=== PATIENT | female | born 1980 | race Caucasian/White ===

== ENCOUNTER 2025-06-11 08:39 | Emergency (ER) | payer BC, SELFPAY ==
[2025-06-11 08:41] VITALS: BP 110/74
--- NOTE | 2025-06-11 09:01 | EDRN ---
Mychal Topete PA in room w/pt and spouse at this time.
[2025-06-11 09:03] VITALS: BMI 23.9
[2025-06-11] MEDS: TYLENOL 650 MG PO (09:13)
--- NOTE | 2025-06-11 09:13 | ED.GENMED ---
History of Present Illness
<Jennie Topete PA-C - Last Filed: 06/12/25 11:13>
General
Chief Complaint: Skin Surface Trauma
Source: patient
Exam Limitations: none
Time Seen by Provider: 06/11/25 08:57
Nursing documentation reviewed up to this point in time: agreed with
History of Present Illness
History of Present Illness:
Patient is a 44-year-old healthy female who presents to the emergency department with head injury. 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
upward and struck her on her nose. She states she 'blacked out' although is unsure if she completely lost consciousness. She reports an immediate nosebleed which fortunately did stop on its own.
She was able to get back into the barn where she was assisted by others and at that time felt extremely lightheaded although does not believe she lost consciousness.
At this time�patient describes significant headache, worse on the left side of her face as well as pain in her nose. She reports nausea although has not had any episodes of vomiting. She denies any double vision.
She denies any numbness/tingling or weakness in extremities any other injury sustained.
She is not on any blood thinners.
Past History
<Jennie Topete PA-C - Last Filed: 06/12/25 11:13>
Past History
ED Past Medical History: Other (Anxiety, anemia, migraines)
ED Past Surgical History: Gynecological
Social History
Tobacco: Non-smoker
Alcohol: Occasional
Drug: None
Personal:
Living: with family
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
Family History
Family History: Other (n/c)
Review of Systems
<Jennie Topete PA-C - Last Filed: 06/12/25 11:13>
Review of Systems
Allergies reviewed?: Yes
All Other Systems: ROS reviewed and negative except as documented in HPI and ROS
Phy Exam
<Jennie Topete PA-C - Last Filed: 06/12/25 11:13>
Physical Exam
Physical Exam:
GENERAL: No acute distress
HEENT: Significant swelling/ bruising to nasal bridge without obvious deformity, dried blood around b/l nares without active bleeding or septal hematoma, approx 1.5 cm superficial vertical laceration on nasal bridge - edges well approximated,
extraocular muscles intact, no signs of entrapment, dentition intact, no tenderness at TMJ or trismus, no other obvious trauma
NECK: no midline tenderness, normal range of motion, no other obvious trauma
BACK: no midline tenderness, no other obvious trauma
CHEST: no tenderness, no flail segment, no subcutaneous emphysema, no other obvious trauma
LUNGS: clear to auscultation bilaterally
CARDIOVASCULAR: regular rate and rhythm
ABDOMEN: soft, non-tender,
PELVIS: stable, no obvious injury
EXTREMITIES: moving all extremities, distal pulses intact, no other obvious trauma
NEUROLOGIC: awake, alert x 3, no focal deficits
Course
<Jennie Topete PA-C - Last Filed: 06/12/25 11:13>
Orders/Labs/Results
Orders:
Orders
06/11/25 09:07
Facial Bones wo Contrast CT [CT Facial Bones W/o Iv Contras] Urgent
Comment:
Reason For Exam: head strike
Acetaminophen [Tylenol] 650 mg PO NOW STA
Tetanus/Diphth/Acelpertussis [Adacel] 0.5 ml IM .ONCE ONE
06/11/25 09:08
CT Head W/o Iv Contrast Urgent
Comment:
Reason For Exam: Headstrike
06/11/25 09:41
Test Result ONCE
06/11/25 10:01
Urine,Hcg qualitative screen [HCG, Urine Qualitative Screen] Urgent
Date Specimen was Collected: 06/11/25
Time Specimen was Collected: 09:59
06/11/25 10:54
Tetanus and Diphtheria Tox/Pf [Tenivac] 0.5 ml IM .ONCE ONE
Vital Signs
Initial and Last Documented VS:
Initial Vital Signs
Temp Pulse Resp BP Pulse Ox
97.7 F 61 16 110/74 98
06/11/25 08:41 06/11/25 08:41 06/11/25 08:41 06/11/25 08:41 06/11/25 08:41
Last Documented Vital Signs
Temp Pulse Resp BP Pulse Ox
97.7 F 57 16 120/74 100
06/11/25 08:41 06/11/25 09:59 06/11/25 09:59 06/11/25 09:59 06/11/25 09:59
<Juan Haro, DO - Last Filed: 06/11/25 12:25>
Orders/Labs/Results
Orders:
Orders
06/11/25 09:07
Facial Bones wo Contrast CT [CT Facial Bones W/o Iv Contras] Urgent
Comment:
Reason For Exam: head strike
Acetaminophen [Tylenol] 650 mg PO NOW STA
Tetanus/Diphth/Acelpertussis [Adacel] 0.5 ml IM .ONCE ONE
06/11/25 09:08
CT Head W/o Iv Contrast Urgent
Comment:
Reason For Exam: Headstrike
06/11/25 09:41
Test Result ONCE
06/11/25 10:01
Urine,Hcg qualitative screen [HCG, Urine Qualitative Screen] Urgent
Date Specimen was Collected: 06/11/25
Time Specimen was Collected: 09:59
06/11/25 10:54
Tetanus and Diphtheria Tox/Pf [Tenivac] 0.5 ml IM .ONCE ONE
Vital Signs
Initial and Last Documented VS:
Initial Vital Signs
Temp Pulse Resp BP Pulse Ox
97.7 F 61 16 110/74 98
06/11/25 08:41 06/11/25 08:41 06/11/25 08:41 06/11/25 08:41 06/11/25 08:41
Last Documented Vital Signs
Temp Pulse Resp BP Pulse Ox
97.7 F 57 16 120/74 100
06/11/25 08:41 06/11/25 09:59 06/11/25 09:59 06/11/25 09:59 06/11/25 09:59
Procedures
<Jennie Topete PA-C - Last Filed: 06/12/25 11:13>
Laceration Closure
Nose:
Status of Wound: clean
Size of Wound in cm: 2
Description of Wound Edges: sharp
Preparation: cleaned with saline
Revision/Debridement: routine- no revision
Wound exploration: explored to base- no FB
Type of Closure: Dermabond-skin glue
<Jennie Topete PA-C - Last Filed: 06/12/25 11:13>
MDM/Problems Addressed
Differential Diagnosis Includes:
Not limited to: nasal fracture, nasal contusion, laceration, epistaxis, concussion, etc
MDM/Problems Addressed:
44-year-old female with facial injury after wheelbarrow struck her in the nose. Unknown LOC. She did have immediate epistaxis however this did stop without intervention prior to my assessment. Very minor laceration to bridge of nose. Vitals and
physical exam as above. Patient has significant swelling and bruising of nose without any obvious deformity. No septal hematoma. No current epistaxis.
Given mechanism�will obtain CT head and facial bones. Will irrigate minor laceration. Will plan to update tetanus shot.
Update: CT head without acute traumatic injuries. CT facial bones shows comminuted fracture of nasal bone. Laceration irrigated and is very superficial. Primary closure with sutures not indicated however did place a small amount of skin glue to
better approximate inferior aspect of laceration. Patient tolerated well.
In regards to Tdap booster�patient has family immersive vaccination reactions and would like to receive tetanus and diphtheria only. Patient received Td vaccine in emergency department.
Otherwise�feels patient stable for discharge home with ENT follow-up. Will start course of Augmentin with concern for open fracture. Patient is stable for discharge. Seen with attending physician.
Chronic conditions affecting care:
N/A
Acute Exacerbation and/or Progression of Chronic Illness:
N/A
<Jennie Topete PA-C - Last Filed: 06/12/25 11:13>
*Radiology
Radiology exam reviewed: radiology read reviewed
*Pulse Oximetry
SaO2: 98
Oxygen Mode of Delivery: Room air
Patient hypoxic: no
*EKG
Interpreted by ED Provider?: NA
*Beading Installer Interpretation
Rate: Beading Installer- N/A
*Critical Care Note
Total Time (30-74mins, 75-104mins- exclusive of procedures): Not Applicable
<Jennie Topete PA-C - Last Filed: 06/12/25 11:13>
Patient Management
Discussion with other providers: Painter And Decorator (case discussed with attending physician)
ED Attending Note
<Jennie Topete PA-C - Last Filed: 06/12/25 11:13>
-
Portions of this chart may have been created with voice recognition software.� Occasional wrong word or��sound alike� substitutions may have occurred due to the inherent limitations of voice recognition software.
<Juan Haro DO - Last Filed: 06/11/25 12:25>
ED Attending Note
Patient seen and examined by attending physician: Yes
I performed the substantive portion of visit, reviewed & personally made and approve the management plan that is documented in note by myself or TOMI.: Yes
ED Attending Note:
I have seen and evaluated the patient with a itvy-dy-hyja encounter. I have spoken to the advance practicer provider and involved in the medical history, the physical exam, medical decision making.
Evaluation and management service: agree unless noted differently below.
Results interpretation: agree unless noted differently below.
Focused HPI: 44-year-old female presenting with nasal injury.
Physical exam: Laceration noted to bridge of nose. No septal hematoma
Medical Decision Making: CT consistent with nasal bone fractures. Will start [place] with concern for open fracture discussed outpatient follow-up with ENT. We discussed likely mild concussion
Discharge Plan
Departure
Patient Disposition: Home (Routine Discharge)
Date of Disposition: 06/11/25
Time of Disposition: 12:16
Patient with high blood pressure during this ER visit?: No
Condition: Good
Discharge Problem:
Head injury, Fracture of nasal bone
Instructions: Nose Fracture ED, BLOOD PRESSURE
Prescriptions:
New
amoxicillin-pot clavulanate 875-125 mg tablet
1 tab PO BID Qty: 14 0RF
Referrals:
David Hill DO [Family Provider, Family Practice]
Solo Boston MD [Active, ENT]
Activity Restrictions/Additional Instructions:
RETURN TO THE EMERGENCY DEPARTMENT WITH ANY SEVERE HEADACHE OR NECK PAIN, INTRACTABLE VOMITING, VISUAL CHANGES OR CHANGES IN MENTAL STATUS, PERSISTENT DIZZINESS, BLEEDING FROM NOSE THAT WILL NOT STOP, OR ANY OTHER CONCERNS
- As discussed�your CT scan showed a comminuted fracture of your nasal bone. You likely also sustained a concussion today
- I would continue to apply ice to your nose. Take Tylenol and/or Motrin as needed for pain.
- Follow-up with ENT for further evaluation/management of nasal bone fracture.
Monitor your symptoms closely and return to the emergency department with any acute worsening/new symptoms or any other concerns
Interventions
Interventions:
*Risk Screen - Suicide Last Done: 06/11/25 08:45
*General Assessment Last Done: 06/11/25 08:45
*Neglect/Abuse Screening Last Done: 06/11/25 08:45
*ED- Fall Risk Assessment Last Done: 06/11/25 08:45
*ED COVID-19 Vaccine History Last Done: 06/11/25 08:45
*Nursing Disposition Last Done: 06/11/25 12:33
ED-Skin Assessment Last Done: 06/11/25 08:45
Discharge Date and Time
Discharge Date/Time: 06/11/25 12:34
Print Language: MONEGASQUE
--- NOTE | 2025-06-11 09:20 | EDRN ---
Addendum entered by Irene Larsen RN 06/11/25 09:47:
Pt was informed about TDAP and why it is administered and about each component in the vaccine as well as side effects to the vaccine.
Original Note:
Pt informed about TDAP and requested only getting the tetanus not with pertussis and diphtheria r/t her daughter having had a reaction to a vaccination in the past. pt on phone w/ mother at this time and asked if a physician would be seeing her, if
she can be seen and cut taken care of by a plastic surgeon. Pt informed a plastic surgeon consult would not be recommended r/t the ability of the staff in this ER at closing wounds and could also delay wound closure. This RN informed Mychal MCGRATH of
pt's requests and Dr. Haro of the same.
--- NOTE | 2025-06-11 09:45 | EDRN ---
This RN calling pharmacy to check if tetanus only can be ordered at this time per pt request.
--- NOTE | 2025-06-11 09:48 | EDRN ---
Pharmacist stated that it is not available tetanus alone only tetanus w/ diphtheria or TDAP.
--- NOTE | 2025-06-11 09:54 | EDRN ---
Pt atttempting urine spec last night.
[2025-06-11 09:59] VITALS: BP 120/74
[2025-06-11 10:12] LABS: HCG, Urine Qualitative Screen Negative
--- NOTE | 2025-06-11 10:53 | EDRN ---
Pt has refused the TDAP and was informed that they do not make per pharmacist a tetanus only vaccine but there is a TD tetanus diphtheria only and pt stated she will take that. I just TT'd Mychal MCGRATH about this.
--- NOTE | 2025-06-11 11:27 | EDRN ---
Mychal Topete PA was in to see pt at this time.
[2025-06-11] MEDS: TENIVAC 0.5 ML IM (11:29)
--- NOTE | 2025-06-11 12:16 | EDRN ---
Dr. Haro in room w/pt at this time.
== END 2025-06-11 12:34 | disposition home or self-care (01) ==
LOC: EMR 08:39
PROVIDERS: Physician Assistant; EMERGENCY PHYSICIAN Student in an Organized Health Care Education/Training Program; FAMILY PHYSICIAN Family Medicine
DX: S09.90XA Unspecified injury of head, initial encounter (principal); S02.2XXA Fracture of nasal bones, initial encounter for closed fracture; S01.21XA Laceration without foreign body of nose, initial encounter; Z23 Encounter for immunization; W20.8XXA Other cause of strike by thrown, projected or falling object, initial encounter; Y92.79 Other farm location as the place of occurrence of the external cause
CPT/HCPCS: 99284; 12011; 90471; 12001; 70450; 70486; 81025; 90714

== ENCOUNTER 2025-06-13 17:56 | Emergency (ER) | payer BC, SELFPAY ==
[2025-06-13 17:59] VITALS: BP 143/80
[2025-06-13 18:29] VITALS: BMI 21.4
[2025-06-13] MEDS: ANTIVERT 25 MG PO (18:43)
--- NOTE | 2025-06-13 20:16 | ED.GENMED ---
History of Present Illness
General
Chief Complaint: Dizziness
Source: patient and spouse
Exam Limitations: none
Time Seen by Provider: 06/13/25 18:27
Nursing documentation reviewed up to this point in time: agreed with
History of Present Illness
History of Present Illness:
Note:
CHIEF COMPLAINT(S)
Dizziness and vertigo, feeling of pressure on the right side of the head.
HISTORY OF PRESENT ILLNESS
The patient is a 44-year-old female who presents with dizziness described as vertigo persisting despite efforts to alleviate symptoms, such as exposure to steam and saline nasal sprays. She reports that the dizziness worsens with head movement and
does not resolve with typical remedies, such as a steam shower. Two days prior, the patient sustained a nasal fracture after being struck by a wheelbarrow at the barn. She was evaluated at that time, and a CT scan showed no intracranial bleeding,
but she did receive a tetanus shot. She reports no current headache but feels pressure on the right side of the head. The dizziness is unlike any previous episodes and feels like �vertigo that won�t go away.� She also notes intermittent nasal
congestion and occasional blood discharge, possibly indicating sinus involvement.
PAST MEDICAL AND SURIGICAL HISTORY
The patient reports a history of ENT surgeries but does not specify the type or extent. She denies any chronic medical conditions.
PHYSICAL EXAM
General: Alert, no acute distress.
Skin: Warm, dry.
Head: Normocephalic, atraumatic.
Neck: Supple, trachea midline.
Eye, Ears, Nose, Mouth, and Throat: Oral mucosa moist. Reports pressure on right side and a feeling of fullness; broken nose with no apparent deformity or new bleeding. bruising to nose, rightward nystagmus
Cardiovascular: No irregularities noted.
Respiratory: Respirations are non-labored.
Gastrointestinal: Abdomen nondistended.
Back: Normal range of motion, Normal alignment.
Musculoskeletal: Normal range of motion, normal strength.
Neurological: Alert and oriented to person, place, time, and situation, No focal neurological deficit observed.
Psychiatric: Cooperative, appropriate mood & affect.
PLAN
1. Repeat CT scan to rule out delayed intracranial bleeding.
2. Prescribed Meclizine for symptomatic relief of vertigo.
3. Recommend physical therapy to address potential vestibular dysfunction due to recent head trauma.
4. Advise against strenuous activities such as skiing until symptoms resolve.
5. Clear for travel, pending CT scan results.
DIFFERENTIAL DIAGNOSIS
The Differential Diagnosis includes, in no particular order and is not limited to:
1. Concussion with secondary vertigo
2. Benign paroxysmal positional vertigo
3. Vestibular neuritis
4. Sinusitis-induced vertigo
5. Inner ear disturbance post-trauma
6. Migrainous vertigo
7. Labyrinthitis
8. Traumatic brain injury
9. Reaction to tetanus vaccination
10. Hypertensive episode (considered unlikely from normal EKG results)
CARE-UPDATE
06/13/25 - 20:17
Patient shows improvement with Meclizine and has no acute findings on St.T. Discharge planned with instructions to follow up with physical therapy and primary care. Castillo proxia remains good.
EKG
My independent EKG interpretation is:
- Time of EKG: Not specified
- Rhythm: Normal
- Heart Rate: 59 bpm
- [place]: Normal
- [place] Interval: Not specified
- QRS Duration: Normal
- QT Interval: Not specified
- ST Segment: Normal
- T Waves: No notable inversions
- Arrhythmias: None identified
Disposition:
SUMMARY OF ENCOUNTER
The patient, a 44-year-old female, presented to the emergency department with complaints of dizziness and a sensation of vertigo that persisted despite attempts to relieve it with steam showers and saline nasal sprays. This occurred after sustaining
a nasal fracture two days prior from a wheelbarrow incident. She also expressed feeling pressure on the right side of her head but no headache. A CT scan previously showed no intracranial bleeding, and she received a tetanus shot at that time. In
the emergency department, the patient was evaluated and treated with Meclizine, which showed improvement of symptoms.
DISPOSITION
Discharge home.
ASSESSMENT
Dizziness possibly due to post-concussive vertigo.
PLAN
1. Repeat CT scan to rule out delayed intracranial bleeding.
2. Prescribe Meclizine for symptomatic relief of vertigo.
3. Recommend beginning physical therapy to address potential vestibular dysfunction due to recent head trauma.
4. Advise against engaging in strenuous activities, such as skiing, until symptoms resolve.
5. Clear for travel, pending CT scan results.
INDEPENDENT REVIEW OF LABS AND INTERPRETATION OF TESTS
My independent interpretation of the CT scan showed no intracranial bleeding.
PATIENT EDUCATION AND COUNSELING
Patient was informed about the nature of post-concussive vertigo and the expected course of symptoms. Advised on the use of Meclizine and the importance of avoiding strenuous activities.
FOLLOW-UP INSTRUCTIONS
Contact the office immediately to schedule a follow-up visit with primary care and physical therapy.
MEDICATION RECONCILIATION
1. Meclizine prescribed for symptomatic relief of vertigo.
MEDICAL DECISION MAKING
- Number and Complexity of Problems Addressed: Chronic conditions affecting care include the history of ENT surgeries. Differential diagnosis includes concussion with secondary vertigo, benign paroxysmal positional vertigo, vestibular neuritis,
sinusitis-induced vertigo, inner ear disturbance post-trauma, migrainous vertigo, labyrinthitis, traumatic brain injury, reaction to tetanus vaccination, and hypertensive episode.
- Data:
Category 1:
My independent interpretation of the CT scan indicated no intracranial bleeding.
An EKG was independently reviewed showing normal findings.
- Risk:
Consideration of Admission/Observation: Escalation of care including admission/observation was considered given the complexity and risk of the patients presenting complaint. However, ultimately, the patient is safe for outpatient management with
close follow-up. Reasoning: The work-up was reassuring, showing no acute life-threatening processes, and the patients symptoms are well controlled upon reevaluation. The patients reexamination was reassuring, vitals stable, and the patient was
agreeable with discharge and reliable for follow-up.
DIAGNOSIS
1. Dizziness, unspecified (ICD-10: R42)
2. Vertigo of central origin (ICD-10: H81.4)
3. Concussion without loss of consciousness, initial encounter (ICD-10: S06.0X0A)
Past History
Past History
ED Past Medical History: Other (Anxiety, anemia, migraines)
ED Past Surgical History: Gynecological
Social History
Tobacco: Non-smoker
Alcohol: Occasional
Drug: None
Personal:
Living: with family
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
Family History
Family History: Other (n/c)
Phy Exam
Physical Exam
Physical Exam:
.
Course
Orders/Labs/Results
Orders:
Orders
06/13/25 18:02
ECG [Electrocardiogram (*1)] Urgent
Reason for Study: Vertigo / Dizzy
06/13/25 18:03
EKG- Treatment ONCE
06/13/25 18:37
Meclizine [Antivert] 25 mg PO NOW STA
06/13/25 18:38
CT Head W/o Iv Contrast Urgent
Comment:
Reason For Exam: dizzyness, recent head trauma
Vital Signs
Initial and Last Documented VS:
Initial Vital Signs
Temp Pulse Resp BP Pulse Ox
97.6 F 72 20 143/80 99
06/13/25 17:59 06/13/25 17:59 06/13/25 17:59 06/13/25 17:59 06/13/25 17:59
Last Documented Vital Signs
Temp Pulse Resp BP Pulse Ox
97.6 F 72 20 143/80 99
06/13/25 17:59 06/13/25 17:59 06/13/25 17:59 06/13/25 17:59 06/13/25 20:20
*Pulse Oximetry
SaO2: 99
Oxygen Mode of Delivery: Room air
Patient hypoxic: no
*Critical Care Note
Total Time (30-74mins, 75-104mins- exclusive of procedures): Not Applicable
ED Attending Note
-
Portions of this chart may have been created with voice recognition software.� Occasional wrong word or��sound alike� substitutions may have occurred due to the inherent limitations of voice recognition software.
Discharge Plan
Departure
Patient Disposition: Home (Routine Discharge)
Date of Disposition: 06/13/25
Time of Disposition: 20:24
Patient with high blood pressure during this ER visit?: Yes
Condition: Good
Discharge Problem:
Vertigo after injury of head
Instructions: Vertigo (a Type of Dizziness) (DC), BLOOD PRESSURE
Prescriptions:
New
meclizine 25 mg tablet
25 mg PO TID PRN (Reason: dizziness) Qty: 14 0RF
No Action
amoxicillin-pot clavulanate 875-125 mg tablet
1 tab PO BID Qty: 14 0RF
Interventions
Interventions:
*General Assessment Last Done: 06/13/25 18:45
*ED- Fall Risk Assessment Last Done: 06/13/25 18:29
*ED COVID-19 Vaccine History Last Done: 06/13/25 18:45
ED- Neurological Assessment Last Done: 06/13/25 18:29
ED Swallowing Screen Last Done: 06/13/25 18:50
Discharge Date and Time
Print Language: HEBREW
== END 2025-06-13 20:45 | disposition home or self-care (01) ==
LOC: EMR 17:56
PROVIDERS: EMERGENCY PHYSICIAN Emergency Medicine
DX: R42 Dizziness and giddiness (principal); R03.0 Elevated blood-pressure reading, without diagnosis of hypertension
CPT/HCPCS: 99284; 70450; 93005